=== PATIENT | male | born 1955 | race Two or more races ===

== ENCOUNTER 2019-06-17 16:49 | Inpatient (IN) | payer BC, OTHER ==
[~2019-06-17] VITALS: Ht 167.6 cm; Wt 75.2 kg
[2019-06-17] MEDS ORDERED: CEFTRIAXONE PMX 1GM/50ML 50 ML ONE (17:46)
[2019-06-17] MEDS ORDERED: CEFTRIAXONE PMX 1GM/50ML 50 ML IVPB ONE (18:00)
[2019-06-17 18:04] LABS: BASOPHILS % (AUTO) 0 % (0-1); EOSINOPHILS % (AUTO) 0 % (1-7); LYMPHOCYTES # (AUTO) 0.58 x10^3/uL (1-3.4); LYMPHOCYTES % (AUTO) 9 % (22-44); MD NO; MEAN CORPUSCULAR HEMOGLOBIN 30.3 pg (27.5-34.5); MEAN CORPUSCULAR HGB CONC 34.3 g/dL (33.2-36.2); MEAN CORPUSCULAR VOLUME 88.3 fL (81-97); MEAN PLATELET VOLUME 9.4 fL (7.4-10.4); MONOCYTES # (AUTO) 0.16 x10^3/uL (0.2-0.8); MONOCYTES % (AUTO) 3 % (2-9); NEUTROPHILS # (AUTO) 5.94 x10^3/uL (1.8-6.8); NEUTROPHILS % (AUTO) 89 % (42-75); PLATELET COUNT 151 x10^3/uL (130-400); RED BLOOD COUNT 4.98 x10^6/uL (4.38-5.82); RED CELL DISTRIBUTION WIDTH 12.7 % (9.4-14.8)
[2019-06-17 18:08] LABS: ALBUMIN 3.2 g/dL (3.4-5.0); ANION GAP 7 mmol/L (5-15); CALCIUM 8.2 mg/dL (8.5-10.1); CHLORIDE 103 mmol/L (98-107); CREATININE 1.49 mg/dL (0.7-1.3)
--- NOTE | 2019-06-17 18:22 | NUR ---
CHU BAJWA TO BE ADMIT
[2019-06-17] MEDS ORDERED: SODIUM CHLORIDE FLUSH 10ML SYR IVF PRN (18:30)
[2019-06-17] MEDS ORDERED: SODIUM CHLORIDE FLUSH 10ML SYR IVF ONE (18:30)
--- NOTE | 2019-06-17 18:58 | NUR ---
REPORT RECEIVED FROM YOLANDA SANCHEZ. PLAN OF CARE DISCUSSED.
--- NOTE | 2019-06-17 18:59 | NUR ---
CHARTED UNDER WRONG USER, YOLANDA CHRISTOPHER TO ASSUME CARE OF PATIENT. REPORT RECEIVED FROM YOLANDA SANCHEZ. PLAN OF CARE DISCUSSED.
[2019-06-17] MEDS ORDERED: AZITHROMYCIN 500 MG in SODIUM CHLORIDE 0.9% 250 ML IVPB ONE (19:00)
--- NOTE | 2019-06-17 19:14 | NUR ---
SECOND IV ABX STARTED
[2019-06-17] MEDS: SODIUM CHLORIDE 0.9% 1,000 ML IV SCH ×2 (19:53→21:59)
[2019-06-17] MEDS ORDERED: POLYETHYLENE GLYCOL 17 GM PACKET PO PRN (20:00)
[2019-06-17] MEDS ORDERED: ONDANSETRON ODT 4 MG PO PRN (20:00)
[2019-06-17] MEDS ORDERED: BISACODYL 10 MG SUPP PR PRN (20:00)
[2019-06-17] MEDS ORDERED: OXYcodone IR 5MG TABLET PO PRN (20:00)
[2019-06-17] MEDS ORDERED: morphine SULFATE 10 MG/ML, 1ML IVPush PRN (20:00)
[2019-06-17] MEDS ORDERED: DOCUSATE 100 MG CAPSULE PO PRN (20:00)
[2019-06-17] MEDS ORDERED: hydrALAzine 20 MG/ML, 1ML IVPush PRN (20:00)
[2019-06-17] MEDS ORDERED: PROMETHAZINE 25 MG/ML, 1ML IM PRN (20:00)
[2019-06-17] MEDS ORDERED: ONDANSETRON 2MG/ML, 2ML IVPush PRN (20:00)
--- NOTE | 2019-06-17 20:12 | NUR ---
PATIENT RESTING ON GURNEY, VSS, NAD, IV ABX RUNNING AT THIS TIME. NEEDS ADDRESSED
[2019-06-17 20:28] LABS: FREE T4 (FREE THYROXINE) 1.2 ng/dL (0.76-1.46)
--- NOTE | 2019-06-17 20:31 | NUR ---
REPORT GIVEN TO YOLANDA MARIANO. PLAN OF CARE DISCUSSED.
--- NOTE | 2019-06-17 20:37 | NUR ---
iv abx completed, maintinence ivf started
[2019-06-17 21:10] VITALS: BP 131/72
[2019-06-17] MEDS: GUAIFENESIN ER 600 MG TABLET PO SCH (21:58)
[2019-06-17] MEDS: HEPARIN 5,000 UNITS/ML, 1ML SQ SCH (21:59)
[2019-06-18 00:28] LABS: MICROSCOPIC INDICATED
[2019-06-18 00:34] LABS: CULTURE INDICATED? NO
[2019-06-18 01:30] VITALS: BP 116/66
[2019-06-18] MEDS: CEFTRIAXONE PMX 2GM/50ML 50 ML IV SCH (05:58)
[2019-06-18] MEDS: HEPARIN 5,000 UNITS/ML, 1ML SQ SCH ×3 (05:58→23:13)
[2019-06-18] MEDS: ACETAMINOPHEN 325 MG TABLET PO PRN (06:05)
[2019-06-18 06:34] LABS: BASOPHILS # (AUTO) 0.01 x10^3/uL (0-0.1); BASOPHILS % (AUTO) 0 % (0-1); EOSINOPHILS % (AUTO) 0 % (1-7); LYMPHOCYTES # (AUTO) 0.91 x10^3/uL (1-3.4); LYMPHOCYTES % (AUTO) 17 % (22-44); MD NO; MEAN CORPUSCULAR HEMOGLOBIN 29.8 pg (27.5-34.5); MEAN CORPUSCULAR HGB CONC 33.6 g/dL (33.2-36.2); MEAN CORPUSCULAR VOLUME 88.9 fL (81-97); MEAN PLATELET VOLUME 8.8 fL (7.4-10.4); MONOCYTES # (AUTO) 0.18 x10^3/uL (0.2-0.8); MONOCYTES % (AUTO) 3 % (2-9); NEUTROPHILS # (AUTO) 4.23 x10^3/uL (1.8-6.8); NEUTROPHILS % (AUTO) 80 % (42-75); PLATELET COUNT 146 x10^3/uL (130-400); RED BLOOD COUNT 4.36 x10^6/uL (4.38-5.82); RED CELL DISTRIBUTION WIDTH 12.9 % (9.4-14.8)
[2019-06-18 06:39] LABS: ALANINE AMINOTRANSFERASE 22 U/L (12-78); ALBUMIN 2.5 g/dL (3.4-5.0); ANION GAP 6 mmol/L (5-15); CALCIUM 7.5 mg/dL (8.5-10.1); CHLORIDE 104 mmol/L (98-107)
[2019-06-18 06:42] LABS: ALKALINE PHOSPHATASE 69 U/L (45-117); BILIRUBIN,TOTAL 0.7 mg/dL (0.2-1.0); CHOL/HDL RATIO 5.1; CHOLESTEROL, TOTAL 91 mg/dL (140-239); HDL CHOL % 20 % (26-37); HDL CHOLESTEROL (DIRECT) 18 mg/dL (40-60); LDL CHOLESTEROL,CALCULATED 45 mg/dL (54-169); LDL/HDL RATIO 2.5 (0.5-3.0); TOTAL PROTEIN 6.1 g/dL (6.4-8.2); TRIGLYCERIDES 140 mg/dL (50-200); VLDL CHOLESTEROL 28 mg/dL (0-25)
[2019-06-18 07:04] VITALS: BP 132/67
[2019-06-18] MEDS: GUAIFENESIN ER 600 MG TABLET PO SCH ×2 (08:48→21:04)
[2019-06-18 12:44] VITALS: BP 123/72
[2019-06-18 21:00] VITALS: BP 148/56
[2019-06-18] MEDS: AZITHROMYCIN 500 MG TABLET PO SCH (21:04)
[2019-06-19 01:46] VITALS: BP 120/71
[2019-06-19] MEDS: CEFTRIAXONE PMX 2GM/50ML 50 ML IV SCH (06:12)
[2019-06-19] MEDS: HEPARIN 5,000 UNITS/ML, 1ML SQ SCH ×3 (06:16→22:00)
[2019-06-19 06:30] LABS: BASOPHILS # (AUTO) 0.02 x10^3/uL (0-0.1); BASOPHILS % (AUTO) 0 % (0-1); EOSINOPHILS # (AUTO) 0.01 x10^3/uL (0-0.4); EOSINOPHILS % (AUTO) 0 % (1-7); LYMPHOCYTES # (AUTO) 1.04 x10^3/uL (1-3.4); LYMPHOCYTES % (AUTO) 20 % (22-44); MD NO; MEAN CORPUSCULAR HEMOGLOBIN 29.9 pg (27.5-34.5); MEAN PLATELET VOLUME 9.2 fL (7.4-10.4); MONOCYTES # (AUTO) 0.31 x10^3/uL (0.2-0.8); MONOCYTES % (AUTO) 6 % (2-9); NEUTROPHILS # (AUTO) 3.78 x10^3/uL (1.8-6.8); NEUTROPHILS % (AUTO) 73 % (42-75); PLATELET COUNT 157 x10^3/uL (130-400); RED CELL DISTRIBUTION WIDTH 12.9 % (9.4-14.8)
[2019-06-19 06:36] LABS: ANION GAP 9 mmol/L (5-15); CALCIUM 7.9 mg/dL (8.5-10.1); CHLORIDE 105 mmol/L (98-107)
[2019-06-19 06:37] LABS: CREATININE 0.88 mg/dL (0.7-1.3)
[2019-06-19 07:41] VITALS: BP 132/72
[2019-06-19] MEDS: GUAIFENESIN ER 600 MG TABLET PO SCH ×2 (07:53→20:44)
[2019-06-19 08:30] VITALS: BP 169/72
[2019-06-19] MEDS: ACETAMINOPHEN 325 MG TABLET PO PRN (09:36)
[2019-06-19 14:32] VITALS: BP 136/64
[2019-06-19 20:00] VITALS: BP 169/72
[2019-06-19] MEDS: AZITHROMYCIN 500 MG TABLET PO SCH (20:44)
[2019-06-20 01:14] VITALS: BP 106/67
[2019-06-20 02:08] VITALS: BP 120/67
[2019-06-20] MEDS: HEPARIN 5,000 UNITS/ML, 1ML SQ SCH ×3 (05:56→21:27)
[2019-06-20] MEDS: CEFTRIAXONE PMX 2GM/50ML 50 ML IV SCH (05:56)
[2019-06-20 07:45] VITALS: BP 138/75
[2019-06-20] MEDS: GUAIFENESIN ER 600 MG TABLET PO SCH ×2 (07:49→21:27)
[2019-06-20 13:25] VITALS: BP 148/72
[2019-06-20 18:48] VITALS: BP 155/75
[2019-06-20] MEDS: AZITHROMYCIN 500 MG TABLET PO SCH (21:27)
[2019-06-21 01:51] VITALS: BP 135/70
[2019-06-21 05:43] LABS: ANION GAP 6 mmol/L (5-15); BASOPHILS # (AUTO) 0.02 x10^3/uL (0-0.1); BASOPHILS % (AUTO) 0 % (0-1); CALCIUM 8.1 mg/dL (8.5-10.1); CHLORIDE 108 mmol/L (98-107); CREATININE 0.85 mg/dL (0.7-1.3); EOSINOPHILS # (AUTO) 0.06 x10^3/uL (0-0.4); EOSINOPHILS % (AUTO) 1 % (1-7); LYMPHOCYTES # (AUTO) 1.23 x10^3/uL (1-3.4); LYMPHOCYTES % (AUTO) 22 % (22-44); MD NO; MEAN CORPUSCULAR HEMOGLOBIN 29.9 pg (27.5-34.5); MEAN CORPUSCULAR HGB CONC 33.6 g/dL (33.2-36.2); MEAN CORPUSCULAR VOLUME 88.9 fL (81-97); MEAN PLATELET VOLUME 8.4 fL (7.4-10.4); MONOCYTES # (AUTO) 0.56 x10^3/uL (0.2-0.8); MONOCYTES % (AUTO) 10 % (2-9); NEUTROPHILS % (AUTO) 67 % (42-75); PLATELET COUNT 260 x10^3/uL (130-400); RED BLOOD COUNT 4.53 x10^6/uL (4.38-5.82); RED CELL DISTRIBUTION WIDTH 12.4 % (9.4-14.8)
[2019-06-21] MEDS: CEFTRIAXONE PMX 2GM/50ML 50 ML IV SCH (05:44)
[2019-06-21] MEDS: HEPARIN 5,000 UNITS/ML, 1ML SQ SCH ×3 (05:44→19:59)
[2019-06-21 07:29] VITALS: BP 147/84
[2019-06-21] MEDS: GUAIFENESIN ER 600 MG TABLET PO SCH ×2 (08:22→19:59)
[2019-06-21] MEDS ORDERED: FUROSEMIDE 20 MG/2 ML IV ONE (10:30)
[2019-06-21 13:26] VITALS: BP 157/80
[2019-06-21 19:59] VITALS: BP 148/83
[2019-06-21] MEDS: AZITHROMYCIN 500 MG TABLET PO SCH (19:59)
[2019-06-22 01:05] VITALS: BP 151/86
[2019-06-22] MEDS: CEFTRIAXONE PMX 2GM/50ML 50 ML IV SCH (06:21)
[2019-06-22] MEDS: HEPARIN 5,000 UNITS/ML, 1ML SQ SCH (06:24)
[2019-06-22 06:56] VITALS: BP 130/73
[2019-06-22] MEDS: GUAIFENESIN ER 600 MG TABLET PO SCH (08:11)
[2019-06-22] MEDS ORDERED: CEFD300C37 PO (10:43)
== END 2019-06-22 12:26 | disposition home or self-care (01) | DRG 193 ==
LOC: ED 19:14 → EDIP 21:21 → 4EST 21:24 → DCLOUNGE 06-22 12:22
PROVIDERS: ADMIT Internal Medicine; ATTEND Internal Medicine
DX: J15.9 Unspecified bacterial pneumonia (principal); J96.01 Acute respiratory failure with hypoxia; N17.0 Acute kidney failure with tubular necrosis
CPT/HCPCS: 36415; 71045; 80048; 80053; 80061; 81001; 82040; 83036; 83605; 83735; 84439; 84443; 85025; 87040; 87070; 87205; 93005; 93306; 96365; 96375; G0378; J0456; J0696; J1644; J1940; J7030; J7050